=== PATIENT | female | born 1975 | race Caucasian/White ===

== ENCOUNTER → 2023-04-26 10:40 | Outpatient (REF) | payer OTHER, SELFPAY | LOC: WDC 10:40 | PROVIDERS: ATTENDING PHYSICIAN Nurse Practitioner | DX: Z12.31 Encounter for screening mammogram for malignant neoplasm of breast (principal) | CPT/HCPCS: 77063; 77067 ==

== ENCOUNTER → 2024-05-01 11:04 | Outpatient (REF) | payer OTHER, SELFPAY | LOC: WDC 11:04 | PROVIDERS: ATTENDING PHYSICIAN Obstetrics & Gynecology Gynecology; FAMILY PHYSICIAN Nurse Practitioner | DX: Z12.31 Encounter for screening mammogram for malignant neoplasm of breast (principal) | CPT/HCPCS: 77063; 77067 ==

== ENCOUNTER 2024-11-24 23:56 | Emergency (ER) | payer OTHER, SELFPAY ==
[2024-11-24 23:57] VITALS: BP 170/94
--- NOTE | 2024-11-25 00:22 | ED.GENMED ---
History of Present Illness
General
Chief Complaint: Headache
Source: patient and spouse
Time Seen by Provider: 11/25/24 00:11
History of Present Illness
History of Present Illness:
This patient is a 49-year-old female who states she has had a 'cold' described as typical URI symptoms for the past few days which has been associated with a mild headache. Today she is actually starting to feel better, but then this
afternoon/evening she developed a gradual onset of left-sided headache described as 'pounding. She took her usual migraine medications including rescue medications and antinausea medication, and then developed repeated episodes of nausea and
nonbloody vomiting. She denies fever, chest pain, shortness of breath, visual changes, double vision, neck pain, abdominal pain, back pain. The pain is persistent without exacerbating relieving factors. Symptoms are very consistent with prior
migraines. She also feels like her throat is uncomfortable from so much vomiting. No change in voice.
Past History
Past History
ED Past Medical History: Other (Migraines)
ED Past Surgical History: and Tonsilectomy
Social History
Tobacco: Non-smoker
Alcohol: Occasional
Drug: None
Personal:
Living: with family
Phy Exam
Physical Exam
Physical Exam:
GENERAL: Alert , in no apparent distress
EYE: pupils equal and reactive, EOMI, no nystagmus, no objective photophobia
NECK: Supple, no significant adenopathy.
ENT: o/p clr, mmm, voice clear, no trismus, no drool, no exudate.
CARDIAC: Regular rate and rhythm .
LUNGS: Clear breath sounds bilaterally, no acute respiratory distress, no wheezes/rales/rhonchi
ABDOMEN: Soft, without focal tenderness, no r/g, no cvat
NEUROLOGICAL: Alert and oriented, no focal neuro deficits, [id number] normal, cranial nerves II through XII intact, motor 5 out of 5, sensory intact, no meningismus
SKIN: Warm and dry, skin intact.
MUSCULOSKELETAL: No edema, well perfused.
PSYCH: Normal and appropriate interaction.
Course
Orders/Labs/Results
Orders:
Orders
11/25/24 00:22
0.9% Sodium Chloride 1000 ml [Nss] 1,000 ml IV BOLUS
Ketorolac [Toradol] 15 mg IV NOW STA
Ondansetron Injectable [Zofran] 4 mg IV NOW STA
Vital Signs
Initial and Last Documented VS:
Initial Vital Signs
Temp Pulse Resp BP Pulse Ox
97.4 F 92 24 170/94 100
11/24/24 23:57 11/24/24 23:57 11/24/24 23:57 11/24/24 23:57 11/24/24 23:57
Last Documented Vital Signs
Temp Pulse Resp BP Pulse Ox
97.4 F 79 16 141/79 99
11/24/24 23:57 11/25/24 01:00 11/25/24 00:46 11/25/24 01:00 11/25/24 01:00
*Pulse Oximetry
SaO2: 100
Oxygen Mode of Delivery: Room air
Patient hypoxic: no
*Critical Care Note
Total Time (30-74mins, 75-104mins- exclusive of procedures): Not Applicable
Update Note
Update Note:
Patient presents to the Emergency Department with headache nausea vomiting
Number and Complexity of Problems Addressed at the Encounter
� Chronic conditions affecting care:
� Acute Exacerbation and/or Progression of Chronic Illness:
� Differential Diagnosis includes: Migraine, tension headache, gastroenteritis, meningitis, etc. etc. etc.
Amount and/or Complexity of Data to be Reviewed and Analyzed
� I performed an independent evaluation of and my interpretation is:
EKG:
CT:
Xrays:
Laboratory Studies:
Other:
� Review of other/old records reveals:
� Clinical information was obtained by an independent historian: who is bedside and describes patient has responded to Toradol in the past
� Prescriptions/Medications Considered but not given:
� Further testing considered but not performed: Patient does not exhibit signs or symptoms to suggest central infectious process such as meningitis, no meningismus, no fever, no rash, etc.
Risk of Complications and/or Morbidity or Mortality of Patient Management
� Social determinants of health affecting care:
� Discussion with other providers (PCP, Hospitalists, Consultants, etc):
� Escalation of care including admission/observation vs risk of discharge considered: 1:55 AM multiple reassessments, headache markedly improved, patient smiling, would like to go home. No new symptoms. at bedside.
Discussed with her importance of follow-up and reasons to return to the ER.
ED Attending Note
-
Portions of this chart may have been created with voice recognition software.� Occasional wrong word or��sound alike� substitutions may have occurred due to the inherent limitations of voice recognition software.
Discharge Plan
Departure
Patient Disposition: Home (Routine Discharge)
Date of Disposition: 11/25/24
Time of Disposition: 01:55
Patient with high blood pressure during this ER visit?: Yes
Condition: Good
Discharge Problem:
Headache
Instructions: Headache, Adult (DC), BLOOD PRESSURE
Prescriptions:
No Action
Emgality Pen 120 mg/mL Pen Injector
120 mg SC QMONTH
Ubrelvy 100 mg Tablet
100 mg PO PRN PRN (Reason: migraines)
Control Pill
1 tab PO DAILY
Patient Comments:
pt does not know name of bcp
Referrals:
Christa Salas CRNP [Family Provider, Family Practice] - Follow up in 2-3 days
Activity Restrictions/Additional Instructions:
IF YOU DEVELOP INCREASING NEW OR PERSISTENT PAIN, ANY NECK PAIN, FEVER, VISUAL CHANGES, DIZZINESS, NUMBNESS, CHANGE IN SPEECH, CHANGE IN BALANCE, OR OTHER WORRISOME SIGNS, PLEASE RETURN TO THE ER IMMEDIATELY EXCLAMATION
Interventions
Interventions:
*Risk Screen - Suicide Last Done: 11/24/24 23:57
*General Assessment Last Done: 11/25/24 00:28
*Neglect/Abuse Screening Last Done: 11/24/24 23:57
*ED COVID-19 Vaccine History Last Done: 11/25/24 00:28
*ED Influenza Vaccine History Last Done: 11/25/24 00:28
ED-EENT Assessment Last Done: 11/25/24 00:46
ED- Neurological Assessment Last Done: 11/25/24 00:46
ED- Pulmonary Assessment Last Done: 11/25/24 00:46
Discharge Date and Time
Print Language: KINYARWANDA
[2024-11-25 00:31] VITALS: BMI 28.9
[2024-11-25] MEDS: NSS 1000 IV (00:38)
[2024-11-25] MEDS: ZOFRAN 4 MG IV (00:38)
[2024-11-25] MEDS: TORADOL 15 MG IV (00:39)
[2024-11-25 00:46] VITALS: BP 150/89
--- NOTE | 2024-11-25 00:48 | EDRN ---
Around 1999 pt developed L side headache for which she took her home migraine medication. Pt says she vomited up the medication. Multiple episodes of non bloody vomiting. Photophobia. Pt says this is not the usual pattern for her migraines
stating it usually starts in the back of her neck. Pt complains of back pain from vomiting. No sp/sob, abd pain, blurred/double vision, speech disturbance, fever/chills/cough, numbness/tingling.
[2024-11-25 01:00] VITALS: BP 141/79
[2024-11-25 02:00] VITALS: BP 125/72
== END 2024-11-25 02:20 | disposition home or self-care (01) ==
LOC: EMR 23:56
PROVIDERS: EMERGENCY PHYSICIAN Emergency Medicine; FAMILY PHYSICIAN Nurse Practitioner
DX: R51.9 Headache, unspecified (principal)
CPT/HCPCS: 96374; 96375; 96361; 99284